=== PATIENT | male | born 1960 | race Caucasian/White ===

== ENCOUNTER → 2016-11-18 | Outpatient (CLI) | payer OTHER ==
--- NOTE | 2016-11-18 16:24 | US ---
EXAMINATION TYPE: US abdomen complete DATE OF EXAM: 11/18/2016 9:22 AM COMPARISON: NONE CLINICAL HISTORY: 56-year-old male R74.8 ELEVATED LIVER ENZYMES. TECHNIQUE: Multiple sonographic images of the abdomen are obtained. FINDINGS: DELIVERY TABLE FEEDER NOTES: Large abdomen, technically difficult study. Liver Length: 19.7 cm Gallbladder Wall: 2.6 mm CBD: 0.5 cm Spleen: 13.3 cm Right Kidney: 12.7 x 5.1 x 5.5 cm Left Kidney: 11.8 x 5.3 x 5.4 cm Pancreas: Only a small portion of the pancreatic body is seen. Remainder suboptimally visualized sec ondary to shadowing from bowel gas. Liver: Enlarged, echogenic, and markedly attenuating. This secondarily limits assessment for focal le isaiah. Gallbladder: Solitary 1 cm calculus and trace sludge. No abnormal gallbladder distention, wall thicke cheri, or pericholecystic fluid. CBD: not well seen due to body habitus and overlying bowel gas Spleen: Upper limits of normal. Right Kidney: Somewhat prominent without hydronephrosis. Left Kidney: No hydronephrosis Upper IVC: Not well seen Abd Aorta: Mostly obscured by overlying bowel gas, only small portion of mid visualized and is matheus l caliber. IMPRESSION: 1. Hepatomegaly and marked hepatic steatosis. Correlate with LFTs, lipid profile, and patient risk fa ctors. 2. Cholelithiasis without acute cholecystitis. 3. Technically limited examination.
== END | disposition home or self-care (01) ==
LOC: RADUSWWP 08:45
PROVIDERS: ATTEND Family Medicine
DX: R16.0 Hepatomegaly, not elsewhere classified (principal); K76.0 Fatty (change of) liver, not elsewhere classified; K80.20 Calculus of gallbladder without cholecystitis without obstruction
CPT/HCPCS: 76700

== ENCOUNTER → 2017-10-17 | Outpatient (CLI) | payer OTHER ==
--- NOTE | 2017-10-17 11:24 | CT ---
EXAMINATION TYPE: CT abdomen pelvis w con DATE OF EXAM: 10/17/2017 COMPARISON: Complete abdominal ultrasound November 18, 2016 HISTORY: Weight loss-30 pounds in [address] DLP: 1693 mGycm, Automated Exposure Control for Dose Reduction was Utilized. CONTRAST: CT scan of the abdomen and pelvis is performed with oral and with IV Contrast, patient injected with 100 mL of Isovue 300. FINDINGS: LUNG BASES: There is 7 mm lobulated groundglass nodule right middle lobe axial image 4. LIVER/GB: Dependent gallstone is seen in gallbladder axial image 27. No surrounding inflammatory quinn ges noted. Liver is diffusely low dense relative to spleen consistent with fatty infiltration as conf irmed on prior ultrasound. Liver is not suspiciously enlarged. PANCREAS: No significant abnormality is seen. SPLEEN: No significant abnormality is seen. ADRENALS: No significant abnormality is seen. KIDNEYS: No significant abnormality is seen. BOWEL: The oral contrast reaches level of the proximal sigmoid colon. There is no suspicious small or large bowel dilatation. There is normal contrast filled appendix from the cecum. There is mild to mo derate wall thickening in the sigmoid colon. A colitis at this level cannot be excluded but would fav or product of poor distention, correlate clinically PROSTATE/SEMINAL VESICLES: Prostate gland is heterogeneous and upper limits of normal in size. LYMPH NODES: No greater than 1cm abdominal or pelvic lymph nodes are appreciated. OSSEOUS STRUCTURES: There are bilateral pars defects L5 level . There is grade 1 anterolisthesis of L 5 on S1 measured 8 mm on sagittal images. There is moderate to advanced disc space narrowing with end plate sclerosis and vacuum disc phenomenon at this level. There is moderate multilevel anterior and l ateral spurring in the mid to lower thoracic spine. OTHER: There is mild calcified plaque of aorta extending into branch vessels. IMPRESSION: 1. Fatty infiltration of liver redemonstrated. 2. Gallstone without CT evidence for acute cholecystitis. 3. A 7 mm right basilar groundglass nodule, advise follow-up contrast-enhanced chest CT to assess for additional nodules. 4. Mild to moderate wall thickening fairly diffusely in sigmoid colon likely product of under distent ion, colitis should be excluded clinically. 5. Bilateral pars defects L5 level with spondylolisthesis and degenerative change lumbosacral junctio n. 6. No obvious mass or adenopathy identified in the abdomen or pelvis to suggest neoplasm.
== END | disposition home or self-care (01) ==
LOC: RADCTMAIN 07:56
PROVIDERS: ATTEND Family Medicine
DX: K80.20 Calculus of gallbladder without cholecystitis without obstruction (principal); K76.0 Fatty (change of) liver, not elsewhere classified; K63.89 Other specified diseases of intestine; R63.4 Abnormal weight loss
CPT/HCPCS: 74177; Q9967

== ENCOUNTER → 2017-11-02 | Outpatient (CLI) | payer OTHER ==
[2017-11-02 09:36] LABS: Blood Urea Nitrogen 16 mg/dL (9-20)
== END | disposition home or self-care (01) ==
LOC: LABWHC1 08:39
PROVIDERS: ATTEND Nurse Practitioner Family
DX: R91.1 Solitary pulmonary nodule (principal)
CPT/HCPCS: 36415; 82565; 84520

== ENCOUNTER → 2017-11-07 | Outpatient (CLI) | payer OTHER ==
--- NOTE | 2017-11-07 08:35 | CT ---
EXAMINATION TYPE: CT chest wo/w con DATE OF EXAM: 11/07/2017 COMPARISON: Correlation CT abdomen and pelvis 10/17/2017 HISTORY: 57-year-old male Wt loss, pulmonary nodule TECHNIQUE: Contiguous axial scanning of the chest before and after the administration of 100 mL of Is ovue 300. Coronal/sagittal reconstructions performed. CT DLP: 909.4mGycm. Automatic exposure control utilized for a dose reduction. FINDINGS: Heart is normal size without pericardial effusion. Coronary vessel calcifications are present in sophia rkable for coronary artery disease. The aorta is normal-caliber with bovine configuration to the aortic arch. A small 8 mm left lower pole thyroid nodule is noted. Scattered small mediastinal lymph nodes and mil d bilateral gynecomastia. No thoracic lymphadenopathy by CT size criteria. Tiny hiatal hernia. Evaluation of the lungs redemonstrates the pulmonary nodule based in the right middle lobe. It measur es 1 cm as measured on the current exam, series 8 image 38. No consolidation or pleural effusion. Bones: Endplate spondylosis mid to lower thoracic spine. No osseous destructive process. IMPRESSION: 1. A 1 cm basilar right middle lobe pulmonary nodule. 3 month follow-up exam recommended to reassess. Findings may be benign but early neoplasm is not excluded at this time. 2. Small 8 mm nodule lower pole left thyroid gland. Thyroid ultrasound can be considered. 3. Tiny hiatal hernia.
== END ==
LOC: RADCTMAIN 06:48
PROVIDERS: ATTEND Family Medicine
DX: R91.1 Solitary pulmonary nodule (principal)
CPT/HCPCS: 71270; Q9967

== ENCOUNTER → 2017-11-21 | Outpatient (CLI) | payer OTHER ==
--- NOTE | 2017-11-21 08:53 | US ---
EXAMINATION TYPE: US thyroid st tissue head/neck DATE OF EXAM: 11/21/2017 COMPARISON: CT CLINICAL HISTORY: E04.1 Thyroid Nodule. Thyroid nodule seen on CT GLAND SIZE: Right Lobe: 4.8 x 2.1 x 1.8 cm Overall Parenchyma: heterogenous Left Lobe: 4.6 x 1.5 x 1.9 cm Overall Parenchyma: heterogeneous Isthmus Thickness: 0.3 cm NODULES RIGHT: # of nodules measured on right: 1 1. 0.7 X 0.6 x 0.7 cm hypoechoic mixed nodule at the mid pole with well-defined margins; This nodu le is wider than tall and shows no intranodular vascularity. Prior size: No prior LEFT: # of nodules measured on left: 1 1. 0.8 X 0.8 x 0.9 cm hypoechoic mixed nodule at the lower pole with well-defined margins; This nod ule is wider than tall and shows no intranodular vascularity. Prior size: 0.8 cm as seen on CT Bilateral neck scanned, no evidence of lymphadenopathy. Dominant nodule on each lobe measured, other multiple sub-centimeter (<0.5cm) nodules visualized bilaterally IMPRESSION: 1. Nonspecific thyroid nodularity. Appropriate follow-up advised.
== END | disposition home or self-care (01) ==
LOC: RADUSWWP 06:58
PROVIDERS: ATTEND Family Medicine
DX: E04.1 Nontoxic single thyroid nodule (principal)
CPT/HCPCS: 76536

== ENCOUNTER → 2018-03-09 | Outpatient (CLI) | payer OTHER ==
--- NOTE | 2018-03-09 08:21 | CT ---
EXAMINATION TYPE: CT chest wo/w con DATE OF EXAM: 03/09/2018 COMPARISON: Chest CT November 07, [address] abdomen October 17, 2017 HISTORY: Pulmonary nodule CT DLP: 624 mGycm. Automated Exposure Control for Dose Reduction was Utilized. TECHNIQUE: CT scan of the thorax is performed following without and with IV Contrast, patient inject ed with 100 mL of Isovue 300. FINDINGS: LUNGS: There is redemonstration of right middle lobe nodule is more solid in appearance on current st y axial image 37 series 4 measuring 8 x 6 mm. No definitive enhancement is present. No new nodules or masses are identified. Dependent atelectasis is seen in both lower lobes. No pleural effusion or p neumothorax is present bilaterally. Tracheobronchial tree is patent. MEDIASTINUM: There are no greater than 1 cm hilar or mediastinal lymph nodes. No cardiomegaly or p ericardial effusion is seen. Coronary artery calcification is present which is noted marker for alejandra nary artery disease. There is stable heterogeneous thyroid with subcentimeter nodularity felt present . OTHER: S-shaped scoliosis is present. There is mild to moderate multilevel spurring in the thoracic s pine. Small degree of bilateral gynecomastia is redemonstrated. IMPRESSION: Overall stable findings, persistent 8 x 6 mm right middle lobe nodule. No new nodules or adenopathy is evident. Advise or Consider repeat CT in one year time to document stability based on F ekaterina sided recommendations based on low risk or high risk patient. Correlate clinically.
== END | disposition home or self-care (01) ==
LOC: RADCTMAIN 07:33
PROVIDERS: ATTEND Family Medicine
DX: R91.1 Solitary pulmonary nodule (principal)
CPT/HCPCS: 71270; Q9967

== ENCOUNTER → 2019-06-20 | Outpatient (CLI) | payer OTHER ==
[2019-06-20 17:17] LABS: African American GFR (CKD) >90 (>60 ml/min/1.73 sqM); Blood Urea Nitrogen 15 mg/dL (9-20); Non-African American GFR(CKD) >90 (>60 ml/min/1.73 sqM)
--- NOTE | 2019-06-21 07:01 | CT ---
EXAMINATION TYPE: CT chest w con DATE OF EXAM: 06/20/2019 COMPARISON: Prior chest CT studies March 09, 2018 and November 07, 2017 HISTORY: Pulmonary lesion, LT side of chest, 1 yr f/u CT DLP: 392.30 mGycm. Automated Exposure Control for Dose Reduction was Utilized. TECHNIQUE: CT scan of the thorax is performed following with IV Contrast, patient injected with 100 mL of Isovue 300. FINDINGS: LUNGS: Stable size right middle lobe nodule or nodular consolidation measuring 8 x 5 mm axial image 3 8. Dependent atelectasis bilateral lower lobes redemonstrated. No new greater than 4 mm pulmonary nod ules or masses. No pleural effusion or thorax. Tracheobronchial tree is patent. MEDIASTINUM: There are no greater than 1 cm hilar or mediastinal lymph nodes. No pericardial effusi on is seen. Heart size upper limits of normal with moderate three-vessel coronary artery calcificati on which is noted marked for underlying coronary artery disease. OTHER: Persistent subareolar bilateral gynecomastia. [id number] multilevel spurring of the spin e. Dependent small gallstones in gallbladder axial image 62 IMPRESSION: Stable 8 x 5 mm right middle lobe nodule or nodular consolidation strongly favoring benig n postinflammatory etiology. No new nodules or masses.
== END | disposition home or self-care (01) ==
LOC: RADCTMAIN 16:22
PROVIDERS: ATTEND Family Medicine
DX: R91.1 Solitary pulmonary nodule (principal); E11.9 Type 2 diabetes mellitus without complications
CPT/HCPCS: 82565; 84520; 71260; 36415; Q9967

== ENCOUNTER 2020-01-27 05:42 | Day surgery (SDC) | payer OTHER ==
[2020-01-27] MEDS ORDERED: ASPIRIN 325 MG TAB PO STA (05:55)
[2020-01-27] MEDS ORDERED: ALPRAZolam 0.5 MG TAB PO PRN (05:55)
[2020-01-27] MEDS ORDERED: SODIUM CHLORIDE 0.9% 1,000 ML in EMPTY BAG 1 BAG IV ONE (05:55)
[2020-01-27] MEDS ORDERED: ALPRAZolam 0.25 MG TAB PO PRN (05:55)
[2020-01-27] MEDS ORDERED: ATORVASTATIN 80 MG TAB PO STA (05:55)
[2020-01-27] MEDS ORDERED: NITROGLYCERIN SL TABS 0.4 MG TAB SUBLINGUAL PRN ×2 (05:55→09:06)
[2020-01-27] MEDS ORDERED: SODIUM CHLORIDE 0.9% 1,000 ML IV ONE (06:05)
[2020-01-27 06:25] LABS: Glucose,Whole Blood 117 mg/dL (75-99)
[2020-01-27 06:26] LABS: Basophils % (A) 1 %; Eosinophils # (A) 0.2 k/uL (0-0.7); Eosinophils % (A) 3 %; HCT 44.9 % (39.0-53.0); HGB 14.9 gm/dL (13.0-17.5); Lymphocytes # (A) 1.5 k/uL (1.0-4.8); Lymphocytes % (A) 25 %; MCH 31.8 pg (25.0-35.0); MCHC 33.3 g/dL (31.0-37.0); MCV 95.4 fL (80.0-100.0); Monocytes # (A) 0.3 k/uL (0-1.0); Monocytes % (A) 5 %; Neutrophils # (A) 3.9 k/uL (1.3-7.7); Neutrophils % (A) 65 %; Platelet Count 204 k/uL (150-450); RDW 12.4 % (11.5-15.5); WBC 5.9 k/uL (3.8-10.6)
[2020-01-27 06:35] LABS: African American GFR (CKD) >90 (>60 ml/min/1.73 sqM); Anion Gap 3 mmol/L; Blood Urea Nitrogen 9 mg/dL (9-20); Carbon Dioxide 27 mmol/L (22-30); Chloride 108 mmol/L (98-107); Glucose 112 mg/dL (74-99); Non-African American GFR(CKD) >90 (>60 ml/min/1.73 sqM); Potassium 4.1 mmol/L (3.5-5.1); Sodium 138 mmol/L (137-145)
[2020-01-27] MEDS ORDERED: fentaNYL (PF) 50 MCG/ML 2 ML AMP IV ONE (07:30)
[2020-01-27] MEDS ORDERED: LIDOCAINE 1% INJ 10MG/ML (20 ML MDV) SQ ONE (07:32)
[2020-01-27] MEDS ORDERED: VERAPAMIL SYRINGE (5 MG/10 ML) INTRAARTER ONE ×2 (07:33→08:49)
[2020-01-27] MEDS ORDERED: MIDAZOLAM 2 MG/2 ML VIAL IV ONE (07:43)
[2020-01-27] MEDS ORDERED: HEPARIN SODIUM 1,000 UN/ML (10ML VL) IV ONE (07:49)
[2020-01-27] MEDS ORDERED: CLOPIDOGREL 75 MG TAB PO ONE (07:51)
[2020-01-27] MEDS ORDERED: IOPAMIDOL-370 100ML BTL INJ ONE ×4 (08:03→08:49)
[2020-01-27] MEDS ORDERED: MAG HYDROX/AL HYDROX/SIMETH 30 ML CUP PO PRN (09:06)
[2020-01-27] MEDS ORDERED: ZOLPIDEM 5 MG TAB PO PRN (09:06)
[2020-01-27] MEDS ORDERED: ATROPINE SULFATE 0.1 MG/ML 10ML SYRINGE IV PRN (09:06)
[2020-01-27] MEDS ORDERED: RX INFO: IV CONTRAST WAS GIVEN 1 EACH MISC MISCELLANE PRN (09:06)
[2020-01-27] MEDS ORDERED: SODIUM CHLORIDE 0.9% 1,000 ML IV SCH (09:15)
--- NOTE | 2020-01-27 09:25 | CC ---
CARDIAC CATHETERIZATION REPORT Mr. Jose is a 59-year-old male with known history of hyperlipidemia, history of coronary artery disease as well as diabetes, who had a abnormal stress echocardiogram with anterior wall ischemia. In view of that, recommendation made regarding cardiac catheterization. The procedures, risks, and complication were discussed with the patient who is in full understanding and agreement. PROCEDURE: Patient was brought to laboratory equipment installer in a fasting semi-sedated state after receiving fentanyl and Benadryl and achieving moderate conscious sedated state. Using Xylocaine anesthesia and Seldinger technique, a 6-Lebanese sheath was introduced in the right radial artery. Selective right and left coronary angiography performed using 5-Lebanese 3.5 bend right and left Juan catheter, multiple views of the coronary artery including hemiaxial views were obtained. Following that, catheters were removed, images were reviewed. FINDINGS: FLUOROSCOPY: There was calcification involving the left anterior descending artery. LEFT MAIN: This is a large-sized vessel, bifurcating into left circumflex, left anterior descending artery. Left main coronary artery has no evidence of high-grade stenosis. LEFT ANTERIOR DESCENDING ARTERY: This is a large-sized vessel, reaching toward the apex, giving rise to 2 diagonal branches. The first diagonal branch is a 50% stenosis. After the diagonal branch, there is a long area of severe disease with subtotally occluded distally with slow flow in the distal LAD and diagonal branch at the bifurcation. The proximal LAD has a 20% plaque. LEFT CIRCUMFLEX: This is a nondominant vessel, giving rise to a large obtuse marginal branch. The left circumflex obtuse marginal branch has 10% to 20% stenosis without any evidence of high-grade stenosis. RIGHT CORONARY ARTERY: This is a dominant vessel, large in caliber, bifurcating distally into PDA and posterolateral segment and branches. The right coronary artery proximally has 20% to 30% plaque. There is collateral from the right coronary artery toward the LAD. LEFT VENTRICULOGRAM: Left ventriculogram not performed. HEMODYNAMICS: There was no gradient across the aortic valve. The left ventricular end- diastolic pressure was not calculated. CONCLUSION: 1. Totally occluded long segment of the LAD involving the diagonal branch. 2. Mild to moderate disease in the right coronary artery and the left circumflex. RECOMMENDATION: In view of finding anatomy, I recommend to proceed with attempt to angioplasty and stenting of the LAD. The procedures, risks, and complication were discussed with the patient who is in full understanding and agreement. MMODL / IJN: [id number] /
--- NOTE | 2020-01-27 09:39 | PTCA ---
PERCUTANEOUSTRANS CORORONARY ANGIOGRAPHY Mr. Jose is a 59-year-old male with known history of diabetes, history of hyperlipidemia, chronic tobacco use, who had an abnormal stress echocardiogram with large anterior wall ischemia, underwent cardiac catheterization, was found to have a totally occluded LAD. Recommendation beginning angioplasty and stenting. The procedures, risks, and complication were discussed with the patient, who is in full understanding and agreement. PROCEDURE: A 6-Peruvian EBU 3.75 guiding catheter introduced into the system after cannulating the left main, a 0.014 balanced medium weight J-wire was advanced across the lesion, was able to cross the occlusion and positioned in the diagonal branch. Subsequently, using is a FineCross microcatheter with the Whisper J-wire, multiple attempts to advanced into the main LAD were unsuccessful. The wire was subintimal. That wire was exchanged to the BMW J-wire. In spite of multiple attempts, there was inability to re-cross the total occlusion of the LAD. At that point, the guiding catheter, the balloon and the guidewire were removed. The sheath was removed, hemostasis was obtained with deployment of a TR band. There was no immediate complication. Patient is returned to his room in stable condition. Of note, the patient had no chest discomfort or EKG changes. Next, he received a total of 8000 units of intravenous heparin. His ACT was monitored. He received intra-arterial verapamil and oral loading dose of clopidogrel. RESULTS: Unsuccessful recanalization of totally occluded LAD. RECOMMENDATION: Patient will be continued on the present medical therapy. He will be evaluated at a later time to undergo repeat procedure for chronic total occlusion of the LAD. Those findings and recommendations were discussed with the patient. He is full understanding and agreement. DURATION OF PROCEDURE: 80 minutes. MMRADHAL / PAN: [id number] /
[2020-01-27 18:16] VITALS: BMI 28.8
[2020-01-27] MEDS ORDERED: METOPROLOL TARTRATE 25 MG TAB PO SCH (21:00)
[2020-01-28 03:38] VITALS: TEMP 98.1
[2020-01-28 06:40] LABS: African American GFR (CKD) >90 (>60 ml/min/1.73 sqM); Anion Gap 5 mmol/L; Blood Urea Nitrogen 8 mg/dL (9-20); Carbon Dioxide 27 mmol/L (22-30); Chloride 106 mmol/L (98-107); Glucose 113 mg/dL (74-99); Non-African American GFR(CKD) >90 (>60 ml/min/1.73 sqM); Potassium 4.3 mmol/L (3.5-5.1); Sodium 138 mmol/L (137-145)
--- NOTE | 2020-01-28 07:41 | PN ---
PROGRESS NOTE Mr. Jose is a 59-year-old male with known history of hyperlipidemia, history of hypertension who had an abnormal stress echocardiogram underwent cardiac catheterization was found to have a chronically occluded mid LAD at the bifurcation of the diagonal branch. Attempts to recanalize the LAD were unsuccessful. He is feeling well this morning. He is denying any chest pain. His breathing has been stable. He denies any dizziness or palpitation. He denies any nausea. He continues to be on aspirin once a day, Plavix 75 mg daily, Lipitor 80 mg daily, metoprolol tartrate 25 mg twice a day. PHYSICAL EXAMINATION: Blood pressure 130/70 with the heart rate in the 60s. LUNGS: Clear. HEART: Regular rate and rhythm. S1, S2. No S3. No rub. ABDOMEN: Soft, nontender. EXTREMITIES: No edema. Right radial pulse intact. LAB DATA: Lab data revealed BUN and creatinine of 8 and 0.71, potassium 4.3. EKG showed no acute changes. IMPRESSION: 1. Chronically occluded left anterior descending artery with inability to recanalize the vessel. 2. Hyperlipidemia. 3. Hypertension. RECOMMENDATION: Patient will be discharged home today and will be evaluated for the possibility to undergo repeat angioplasty and stenting at a tertiary care facility. I have discussed those findings with the patient. MMODL / IJN: [id number] /
[2020-01-28 09:00] VITALS: BP 128/80; PULSE 54; RESP 16
[2020-01-28] MEDS ORDERED: CLOPIDOGREL 75 MG TAB PO SCH (09:00)
[2020-01-28] MEDS ORDERED: ASPIRIN 81 MG PO SCH (09:00)
[2020-01-28] MEDS ORDERED: ATORVASTATIN 80 MG TAB PO SCH (21:00)
[2020-02-02] MEDS ORDERED: ERGOCALCIFEROL 50,000 UNIT CAP PO SCH (09:00)
== END 2020-01-28 10:44 | disposition home or self-care (01) ==
LOC: CATHCVL 05:42 → 3NCARDOBS 08:50 → CATHCVL 01-28 10:44
PROVIDERS: ATTEND Internal Medicine Interventional Cardiology
DX: I25.10 Atherosclerotic heart disease of native coronary artery without angina pectoris (principal); I25.82 Chronic total occlusion of coronary artery; I10 Essential (primary) hypertension; E11.9 Type 2 diabetes mellitus without complications; E78.5 Hyperlipidemia, unspecified; E78.00 Pure hypercholesterolemia, unspecified; Z79.82 Long term (current) use of aspirin; Z79.02 Long term (current) use of antithrombotics/antiplatelets; Z79.899 Other long term (current) drug therapy
CPT/HCPCS: 93458; 92920; 85347; 80048 ×2; 85025; C1769 ×4; C1887 ×2; C1894; J2250; J2001; J3010; J1644; Q9967

== ENCOUNTER 2020-01-29 00:21 | Emergency (ER) | payer OTHER ==
[2020-01-29 00:29] VITALS: TEMP 98.9
[2020-01-29 00:45] LABS: Basophils % (A) 1 %; Eosinophils # (A) 0.1 k/uL (0-0.7); Eosinophils % (A) 1 %; HCT 46.8 % (39.0-53.0); HGB 15.5 gm/dL (13.0-17.5); Lymphocytes # (A) 1.1 k/uL (1.0-4.8); Lymphocytes % (A) 17 %; MCH 31.7 pg (25.0-35.0); MCHC 33.1 g/dL (31.0-37.0); MCV 95.8 fL (80.0-100.0); Mean Platelet Volume 7.9; Monocytes # (A) 0.3 k/uL (0-1.0); Monocytes % (A) 5 %; Neutrophils # (A) 4.9 k/uL (1.3-7.7); Neutrophils % (A) 75 %; Platelet Count 183 k/uL (150-450); RBC 4.89 m/uL (4.30-5.90); RDW 12.5 % (11.5-15.5); WBC 6.5 k/uL (3.8-10.6)
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
[2020-01-29 00:59] LABS: Partial Thromboplastin Time 21.3 sec (22.0-30.0); Prothrombin Time 10.2 sec (9.0-12.0)
[2020-01-29 01:02] LABS: ALT 25 U/L (4-49); AST 29 U/L (17-59); African American GFR (CKD) >90 (>60 ml/min/1.73 sqM); Albumin 4.7 g/dL (3.5-5.0); Alkaline Phosphatase 52 U/L (38-126); Anion Gap 11 mmol/L; Blood Urea Nitrogen 8 mg/dL (9-20); Calcium 9.8 mg/dL (8.4-10.2); Carbon Dioxide 21 mmol/L (22-30); Chloride 109 mmol/L (98-107); Glucose 143 mg/dL (74-99); Non-African American GFR(CKD) >90 (>60 ml/min/1.73 sqM); Sodium 141 mmol/L (137-145); Total Bilirubin 0.4 mg/dL (0.2-1.3); Total Protein 7.3 g/dL (6.3-8.2)
--- NOTE | 2020-01-29 01:06 | CT ---
EXAM: CT Head Without Intravenous Contrast CLINICAL HISTORY: ITS.REASON CT Reason: trauma TECHNIQUE: Axial computed tomography images of the head/brain without intravenous contrast. CTDI is 45.2 mGy and DLP is 1061 mGy-cm. This CT exam was performed using one or more of the following dose reduction techniques: automated exposure control, adjustment of the mA and/or kV according to patient size, and/or use of iterative reconstruction technique. COMPARISON: No relevant prior studies available. FINDINGS: Brain: Unremarkable. No hemorrhage. No significant white matter disease. No edema. Ventricles: Unremarkable. No ventriculomegaly. Bones/joints: Chronic left lamina papyracea fracture. No skull fracture. Soft tissues: Left anterior frontal scalp hematoma. Sinuses: Trace mucosal thickening in the left maxillary sinus. Paranasal sinuses are otherwise clear. No sinus fluid levels. Mastoid air cells: Unremarkable as visualized. No mastoid effusion. IMPRESSION: 1. No acute intracranial process. 2. Left anterior frontal scalp hematoma. No skull fracture. EXAM: CT Cervical Spine Without Intravenous Contrast CLINICAL HISTORY: ITS.REASON CT Reason: trauma TECHNIQUE: Axial computed tomography images of the cervical spine without intravenous contrast. CTDI is 6.3 mGy and DLP is 210.4 mGy-cm. This CT exam was performed using one or more of the following dose reduction techniques: automated exposure control, adjustment of the mA and/or kV according to patient size, and/or use of iterative reconstruction technique. COMPARISON: No relevant prior studies available. FINDINGS: Vertebrae: Straightening of the cervical spine with preservation of vertebral body height and alignment. No acute fracture or subluxation. Discs/spinal canal/neural foramina: Multilevel degenerative disc disease, moderate at C5-C6, C6-C7, C7-T1, and in the visualized upper thoracic spine. Uncovertebral joint degeneration in the lower cervical spine. Mild bilateral facet arthropathy. 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 There is moderate right and mild left foraminal narrowing at C5-C6. Foramina are otherwise patent. Soft tissues: No prevertebral soft tissue swelling. IMPRESSION: No acute osseous findings.
[2020-01-29 01:10] LABS: Alcohol 189 mg/dL
[2020-01-29 01:22] LABS: Appearance,Urine Clear (Clear); Bilirubin,Urine Negative (Negative); Blood,Urine Negative (Negative); Color,Urine Colorless; Glucose,Urine (UA) Negative (Negative); Ketones,Urine Negative (Negative); Leukocyte Esterase,Urine Negative (Negative); Nitrite,Urine Negative (Negative); Protein,Urine Negative (Negative); Specific Gravity,Urine 1.002 (1.001-1.035); Urobilinogen,Urine <2.0 mg/dL (<2.0)
[2020-01-29 01:31] LABS: Amphetamine Screen,Urine Not Detected (NotDetected); Barbiturate Screen,Urine Not Detected (NotDetected); Benzodiazepines Screen,Urine Not Detected (NotDetected); Cocaine Screen,Urine Not Detected (NotDetected); Methadone Screen, Urine Not Detected (NotDetected); Opiate Screen,Urine Not Detected (NotDetected); Oxycodone Screen, Urine Not Detected (NotDetected); Phencyclidine Screen,Urine Not Detected (NotDetected); Tricyclic Antidepressant,Urine Not Detected (NotDetected); Urn Cannabinoid Scrn Detected (NotDetected)
[2020-01-29] MEDS ORDERED: LIDOCAINE 1% INJ 10MG/ML (20 ML MDV) SQ ONE (01:45)
[2020-01-29 02:24] VITALS: BP 107/66; PULSE 60; RESP 16
== END 2020-01-29 02:30 | disposition home or self-care (01) ==
LOC: EC 00:21
DX: S01.01XA Laceration without foreign body of scalp, initial encounter (principal); F17.200 Nicotine dependence, unspecified, uncomplicated; E11.9 Type 2 diabetes mellitus without complications; Z79.899 Other long term (current) drug therapy; Y04.0XXA Assault by unarmed brawl or fight, initial encounter
CPT/HCPCS: 99284 ×2; 12011 ×2; 36415; 93005; 86900; 86901; 80053; 83605; 84484; 85025; 85610; 85730; 86850; 81003; 80306; 72125; 70450; G0480; J2001; 80320

== ENCOUNTER → 2020-03-18 | Outpatient (CLI) | payer OTHER ==
[2020-03-18 12:19] LABS: HCT 43.4 % (39.0-53.0); HGB 14.3 gm/dL (13.0-17.5); MCHC 32.9 g/dL (31.0-37.0); MCV 97.1 fL (80.0-100.0); Mean Platelet Volume 7.7; Platelet Count 214 k/uL (150-450); RBC 4.47 m/uL (4.30-5.90); RDW 12.2 % (11.5-15.5); WBC 4.3 k/uL (3.8-10.6)
[2020-03-18 13:01] LABS: INR 0.9 (<1.2); Prothrombin Time 9.7 sec (9.0-12.0)
[2020-03-18 19:21] LABS: African American GFR (CKD) 114.1 (60.0-200.0); Anion Gap 7.9 mmol/L (4.00-12.00); Calcium 9.2 mg/dL (8.7-10.3); Carbon Dioxide 23.1 mmol/L (21.6-31.8); Magnesium 1.8 mg/dL (1.5-2.4); Non-African American GFR(CKD) 98.5 (60.0-200.0)
== END | disposition home or self-care (01) ==
LOC: LABWHC1 10:50
DX: Z01.818 Encounter for other preprocedural examination (principal); I25.82 Chronic total occlusion of coronary artery
CPT/HCPCS: 80048; 83735; 85027; 85610; 36415; U0003; C9803

== ENCOUNTER → 2020-03-31 | Outpatient (CLI) | payer OTHER ==
[2020-03-31 21:29] LABS: Chol/HDL Ratio 3.15; LDL Cholesterol,Calculated 80.2 mg/dL (0.0-131.0); VLDL Calculation 20.8 mg/dL (5.00-40.00)
== END | disposition home or self-care (01) ==
LOC: LABWHC1 11:00
PROVIDERS: ATTEND Internal Medicine Interventional Cardiology
DX: E78.2 Mixed hyperlipidemia (principal)
CPT/HCPCS: 36415; 80061; 84450; 84460

== ENCOUNTER → 2020-05-29 | Outpatient (CLI) | payer OTHER ==
[2020-05-29 08:44] LABS: Basophils % (A) 1 %; Eosinophils # (A) 0.2 k/uL (0-0.7); Eosinophils % (A) 6 %; HCT 44.5 % (39.0-53.0); HGB 15.3 gm/dL (13.0-17.5); Lymphocytes % (A) 25 %; MCH 33.4 pg (25.0-35.0); MCHC 34.3 g/dL (31.0-37.0); MCV 97.3 fL (80.0-100.0); Mean Platelet Volume 7.9; Monocytes # (A) 0.3 k/uL (0-1.0); Monocytes % (A) 6 %; Neutrophils # (A) 2.3 k/uL (1.3-7.7); Neutrophils % (A) 59 %; Platelet Count 180 k/uL (150-450); RBC 4.57 m/uL (4.30-5.90); RDW 11.8 % (11.5-15.5); WBC 3.9 k/uL (3.8-10.6)
[2020-05-29 09:07] LABS: ALT 32 U/L (4-49); AST 57 U/L (17-59); African American GFR (CKD) >90 (>60 ml/min/1.73 sqM); Albumin 4.9 g/dL (3.5-5.0); Alkaline Phosphatase 41 U/L (38-126); Anion Gap 4 mmol/L; Blood Urea Nitrogen 14 mg/dL (9-20); Calcium 9.7 mg/dL (8.4-10.2); Carbon Dioxide 28 mmol/L (22-30); Chloride 108 mmol/L (98-107); Cholesterol 133 mg/dL (<200); Creatine Kinase 242 U/L (55-170); Glucose 104 mg/dL (74-99); HDL Cholesterol 53 mg/dL (40-60); LDL Cholesterol,Calculated 56 mg/dL (0-99); Non-African American GFR(CKD) >90 (>60 ml/min/1.73 sqM); Sodium 140 mmol/L (137-145); Total Bilirubin 1.3 mg/dL (0.2-1.3); Total Protein 8.1 g/dL (6.3-8.2); Triglycerides 120 mg/dL (<150)
[2020-05-29 09:11] LABS: Potassium 5.3 mmol/L (3.5-5.1)
--- NOTE | 2020-05-29 17:18 | CT ---
EXAMINATION TYPE: CT chest w con DATE OF EXAM: 05/29/2020 COMPARISON: 06/20/2019 HISTORY: lung nodule CT DLP: 449.3 mGycm, Automated exposure control for dose reduction was used. CONTRAST: Performed injected with 100 mL of Isovue 300. TECHNIQUE: Axial images were obtained at 5 mm thick sections. Reconstructed images are reviewed on [employer] computer in the coronal plane. FINDINGS: Portion of the thyroid visualized is normal. Right middle lobe nodule, series 4 image 40, currently measures 0.6 x 0.9 cm. This is slightly larger than the 0.5 x 0.8 cm previous. No enlarged mediastinal or hilar adenopathy is evident. The ascending aorta diameter at the level o f the main pulmonary artery is 3.0 cm. The main pulmonary artery diameter at the bifurcation is 3.6 cm. Dense coronary artery calcification is present. Limited CT sections are obtained through the upper abdomen. Abdomen is essentially unremarkable. IMPRESSIONS: 1. Measurements of right middle lobe nodule are minimally larger than prior, this could be within regina surement error. Short-term follow-up in 6 months or further evaluation with PET/CT could be performed .
== END | disposition home or self-care (01) ==
LOC: RADCTMAIN 07:35
PROVIDERS: ATTEND Family Medicine
DX: R91.1 Solitary pulmonary nodule (principal); E11.9 Type 2 diabetes mellitus without complications
CPT/HCPCS: 82552; 84439; 84154; 84153; 80061; 80053; 82550; 84443; 85025; 71260; 36415; Q9967

== ENCOUNTER 2020-10-19 16:20 | Emergency (ER) | payer OTHER ==
[2020-10-19 17:10] VITALS: BP 112/56; PULSE 70; RESP 20; TEMP 98.2
--- NOTE | 2020-10-19 17:38 | XR ---
EXAMINATION TYPE: XR hand complete LT DATE OF EXAM: 10/19/2020 COMPARISON: NONE HISTORY: Hand pain and swelling TECHNIQUE: 3 views FINDINGS: Metacarpals are intact there is minor spurring at the first carpometacarpal joint. There is some soft tissue swelling at the distal index finger. There is slight cortical irregularity at the tuft of the distal phalanx. IMPRESSION: Soft tissue swelling at the lateral aspect of the distal phalanx of the index finger left hand. There is possible hairline fracture of the tuft of the distal phalanx of the index finger.
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
== END 2020-10-19 18:00 | disposition home or self-care (01) ==
LOC: EC 16:20
DX: S60.222A Contusion of left hand, initial encounter (principal); E11.9 Type 2 diabetes mellitus without complications; E78.5 Hyperlipidemia, unspecified; M19.90 Unspecified osteoarthritis, unspecified site; F17.200 Nicotine dependence, unspecified, uncomplicated; F12.90 Cannabis use, unspecified, uncomplicated; V19.9XXA Pedal cyclist (driver) (passenger) injured in unspecified traffic accident, initial encounter; Y92.410 Unspecified street and highway as the place of occurrence of the external cause
CPT/HCPCS: 99283

== ENCOUNTER 2020-11-14 10:56 | Emergency (ER) | payer OTHER ==
[2020-11-14 11:07] VITALS: BP 135/74; PULSE 53; RESP 18; TEMP 97.9
[2020-11-14] MEDS ORDERED: BACITRACIN OINT 1 EACH PACKET TOPICAL ONE ×2 (11:16→11:23)
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
--- NOTE | 2020-11-14 11:53 | XR ---
EXAMINATION TYPE: XR wrist complete LT DATE OF EXAM: 11/14/2020 CLINICAL HISTORY: Fall injury with pain. TECHNIQUE: Frontal, lateral and oblique images of the left wrist are obtained. 4 view scaphoid view is performed. COMPARISON: Left hand x-ray October 19, 2020 FINDINGS: There is no acute fracture/dislocation evident in the left wrist. Mild to moderate narrowi ng and spurring base of first metacarpal is redemonstrated. The overlying soft tissue appears unrema rkable. IMPRESSION: There is no acute fracture or dislocation in the left wrist.
--- NOTE | 2020-11-14 11:54 | XR ---
EXAMINATION TYPE: XR ribs RT w pa chest xray DATE OF EXAM: 11/14/2020 CLINICAL HISTORY: Right-sided pain after fall injury. TECHNIQUE: Single frontal view of the chest is obtained. A frontal and oblique images right-sided rib s. COMPARISON: Chest CT May 29, 2020 FINDINGS: There is no new Suspicious focal air space opacity, pleural effusion, or pneumothorax seen . The cardiac silhouette size remains within normal limits. The osseous structures are intact. Dedicated images right-sided ribs show no acute displaced fracture. Overlying soft tissue is unremark able. IMPRESSION: 1. No acute cardiopulmonary process. 2. No acute displaced right-sided rib fracture is seen.
== END 2020-11-14 12:20 | disposition home or self-care (01) ==
LOC: EC 10:56
DX: S63.502A Unspecified sprain of left wrist, initial encounter (principal); S20.211A Contusion of right front wall of thorax, initial encounter; S50.311A Abrasion of right elbow, initial encounter; S80.212A Abrasion, left knee, initial encounter; S80.211A Abrasion, right knee, initial encounter; F17.210 Nicotine dependence, cigarettes, uncomplicated; E78.5 Hyperlipidemia, unspecified; E11.9 Type 2 diabetes mellitus without complications; M19.90 Unspecified osteoarthritis, unspecified site; Z79.02 Long term (current) use of antithrombotics/antiplatelets; Z79.82 Long term (current) use of aspirin; V18.9XXA Unspecified pedal cyclist injured in noncollision transport accident in traffic accident, initial encounter; Y93.55 Activity, bike riding
CPT/HCPCS: 99283

== ENCOUNTER → 2021-03-16 | Outpatient (CLI) | payer OTHER ==
[2021-03-16 20:02] LABS: Chol/HDL Ratio 4.06; LDL Cholesterol,Calculated 73.8 mg/dL (0.0-131.0); VLDL Calculation 27.2 mg/dL (5.00-40.00)
== END | disposition home or self-care (01) ==
LOC: LABWHC1 10:18
PROVIDERS: ATTEND Nurse Practitioner Adult Health
DX: E78.2 Mixed hyperlipidemia (principal)
CPT/HCPCS: 36415; 80061; 84450; 84460

== ENCOUNTER → 2021-03-22 | Outpatient (CLI) | payer OTHER ==
[2021-03-22 11:09] LABS: HCT 40.9 % (39.0-53.0); HGB 14.4 gm/dL (13.0-17.5); MCH 31.4 pg (25.0-35.0); MCHC 35.3 g/dL (31.0-37.0); Mean Platelet Volume 8.1; Platelet Count 188 k/uL (150-450); RBC 4.59 m/uL (4.30-5.90); RDW 12.7 % (11.5-15.5); WBC 4.4 k/uL (3.8-10.6)
[2021-03-22 11:23] LABS: African American GFR (CKD) >90 (>60 ml/min/1.73 sqM); Anion Gap 10 mmol/L; Blood Urea Nitrogen 11 mg/dL (9-20); Carbon Dioxide 23 mmol/L (22-30); Chloride 105 mmol/L (98-107); Non-African American GFR(CKD) >90 (>60 ml/min/1.73 sqM); Potassium 4.1 mmol/L (3.5-5.1); Sodium 138 mmol/L (137-145)
== END | disposition home or self-care (01) ==
LOC: LABPAT 10:10
PROVIDERS: ATTEND Internal Medicine Interventional Cardiology
DX: Z01.812 Encounter for preprocedural laboratory examination (principal)
CPT/HCPCS: 80051; 82565; 84520; 85027

== ENCOUNTER 2021-04-06 06:21 | Day surgery (SDC) | payer OTHER ==
[2021-04-02 14:39] VITALS: BMI 33.7
[~2021-04-06 06:21] MED LIST: ALPRAZolam 0.25 MG TAB PO PRN; ALPRAZolam 0.5 MG TAB PO PRN; NITROGLYCERIN SL TABS 0.4 MG TAB SUBLINGUAL PRN; SODIUM CHLORIDE 0.9% 1,000 ML in EMPTY BAG 1 BAG IV SCH
[2021-04-06] MEDS ORDERED: SODIUM CHLORIDE 0.9% 1,000 ML IV ONE (06:51)
[2021-04-06] MEDS ORDERED: ATORVASTATIN 80 MG TAB PO ONE (07:00)
[2021-04-06] MEDS ORDERED: ASPIRIN 325 MG TAB PO ONE (07:00)
[2021-04-06] MEDS ORDERED: ASPIRIN 81 MG ONE (07:05)
[2021-04-06] MEDS ORDERED: ASPIRIN 81 MG PO ONE (07:06)
[2021-04-06 07:09] VITALS: TEMP 98.6
[2021-04-06 07:09] LABS: Glucose,Whole Blood 161 mg/dL (75-99)
[2021-04-06] MEDS ORDERED: LIDOCAINE 1% INJ 10MG/ML (20 ML MDV) ONE (07:25)
[2021-04-06] MEDS ORDERED: fentaNYL (PF) 50 MCG/ML 2 ML AMP ONE (07:25)
[2021-04-06] MEDS ORDERED: VERAPAMIL 2.5 MG/ML 2 ML AMP ONE (07:25)
[2021-04-06] MEDS ORDERED: fentaNYL (PF) 50 MCG/ML 2 ML AMP IV ONE (07:48)
[2021-04-06] MEDS ORDERED: HEPARIN SODIUM 1,000 UN/ML (10ML VL) ONE (07:53)
[2021-04-06] MEDS: LIDOCAINE 1% INJ 10MG/ML (20 ML MDV) SQ ONE ×2 (07:53→08:09)
[2021-04-06] MEDS ORDERED: IOPAMIDOL-370 50ML BTL INJ ONE (08:23)
[2021-04-06] MEDS ORDERED: IOPAMIDOL-370 125ML BTL INJ ONE (08:23)
[2021-04-06] MEDS ORDERED: RX INFO: IV CONTRAST WAS GIVEN 1 EACH MISC MISCELLANE PRN (08:34)
[2021-04-06] MEDS ORDERED: SODIUM CHLORIDE 0.9% 1,000 ML IV SCH (08:45)
[2021-04-06] MEDS ORDERED: CLOPIDOGREL 75 MG TAB PO SCH (09:00)
[2021-04-06] MEDS ORDERED: METOPROLOL TARTRATE 25 MG TAB PO SCH (09:00)
[2021-04-06] MEDS ORDERED: ATORVASTATIN 80 MG TAB PO SCH (09:00)
[2021-04-06] MEDS ORDERED: NON FORMULARY DRUG (Aspirin [Adult Low Dose Aspirin Ec] 81 MG Tablet.Dr) PO SCH (09:00)
[2021-04-06 10:24] VITALS: RESP 16
--- NOTE | 2021-04-06 11:42 | CC ---
CARDIAC CATHETERIZATION REPORT Mr. Jose is a 60-year-old male with known history of diabetes, history of hyperlipidemia and history of coronary artery disease, status post complex stenting of the LAD in February 2020. He recently underwent myocardial perfusion imaging that revealed evidence of anterior wall ischemia. In view of that, recommendation was made regarding cardiac catheterization. The procedure as well as its risks and complications were discussed with the patient, who was in full understanding and agreement. PROCEDURE DESCRIPTION: Patient was brought to the label printing machinist in a fasting, semi-sedated state after receiving fentanyl and Benadryl. He was draped and prepped in conventional fashion. Using xylocaine anesthesia, attempts to advance a wire in the right radial artery were unsuccessful. Subsequently, using Xylocaine anesthesia and Seldinger technique, a 6- Moldovan sheath was introduced in the right femoral artery. Selective right and left coronary angiography was performed using 6-Moldovan, 4 bend right and left Judkin's catheters. Multiple views were taken of the arteries, including hemiaxial views. Following that, a 6-Moldovan tight pigtail catheter was introduced into the left ventricle and a 30-degree OSEI view of the left ventricle was obtained. Following that, catheter and sheath were removed. Hemostasis was obtained with deployment of an Angio- Seal. There was no immediate complication. Patient was returned to his room in stable condition. FINDINGS: LEFT MAIN: This is a large-sized vessel bifurcating into left circumflex and left anterior descending coronary artery. Left main coronary artery has a 10% to 20% plaque proximally. LEFT ANTERIOR DESCENDING ARTERY: This is a large-sized vessel reaching toward the apex with a wrap around the apex segment giving rise to 2 diagonal branches. The proximal LAD has a 20% plaque. The stented segment in the proximal LAD is patent. At the takeoff of the diagonal branch there is 20% plaque. The flow into the second diagonal branch is slow with diffuse intimal in-stent restenosis up to 99%. LEFT CIRCUMFLEX: This is a nondominant vessel, large in caliber, giving rise to a large obtuse marginal branch. The left circumflex as well as its branches have no evidence of obstructive coronary artery disease. RIGHT CORONARY ARTERY: This is a large dominant vessel bifurcating into PDA and posterolateral segment and branches. The right coronary artery has mild intimal disease throughout its course up to 20%. COLLATERALS: There is a septal collateral from the PDA to the septal branch. LEFT VENTRICULOGRAM: Left ventriculogram was performed in 30-degree OSEI view and revealed normal left ventricular size and systolic function, ejection fraction 55%. There was no significant mitral regurgitation. HEMODYNAMICS: There was no gradient across the aortic valve. The left ventricular end- diastolic pressure was 16 to 20 mmHg. CONCLUSION: 1. Patent stent to the LAD with significant in-stent restenosis in the second diagonal branch. 2. Mild disease in the right coronary artery. 3. Preserved left ventricular size and systolic function. RECOMMENDATIONS: In view of findings and anatomy, I have recommended continued medical therapy with the aggressive coronary risk modifications that have been initiated. The abnormality on the stress test most likely represented diagonal branch territory. Based on this finding, I would recommend maximizing his medical therapy. Those findings and recommendations were discussed with the patient, and he is in full understanding and agreement. Duration of sedation was 31 minutes. LISSETTE / BABITA: [id number] / MTDD
[2021-04-06 12:39] VITALS: BP 127/82; PULSE 55
== END 2021-04-06 13:23 | disposition home or self-care (01) ==
LOC: CATHCVL 06:21
PROVIDERS: ATTEND Internal Medicine Interventional Cardiology
DX: I25.10 Atherosclerotic heart disease of native coronary artery without angina pectoris (principal); T82.855A Stenosis of coronary artery stent, initial encounter; E78.00 Pure hypercholesterolemia, unspecified; R94.39 Abnormal result of other cardiovascular function study; E78.2 Mixed hyperlipidemia; E11.9 Type 2 diabetes mellitus without complications; Z20.822 Contact with and (suspected) exposure to COVID-19; Z79.02 Long term (current) use of antithrombotics/antiplatelets; Z79.82 Long term (current) use of aspirin; Z79.899 Other long term (current) drug therapy; Z87.891 Personal history of nicotine dependence
CPT/HCPCS: 93458; 87635; C1760; C1894 ×2; C1769; J2001; J3010; Q9967 ×2

== ENCOUNTER → 2021-08-26 | Outpatient (CLI) | payer OTHER ==
[2021-08-26 09:30] LABS: African American GFR (CKD) >90 (>60 ml/min/1.73 sqM); Blood Urea Nitrogen 12 mg/dL (9-20); Non-African American GFR(CKD) >90 (>60 ml/min/1.73 sqM)
--- NOTE | 2021-08-26 10:31 | CT ---
EXAMINATION TYPE: CT chest w con DATE OF EXAM: 08/26/2021 COMPARISON: CT dated 05 October 2021 HISTORY: Lung nodule CT DLP: 530.4 mGycm Automated exposure control for dose reduction was used. TECHNIQUE: CT scan of the chest is performed with IV Contrast, patient injected with 100 mL of Isovue 300. FINDINGS: LUNGS: Stable middle lobe nodule measuring 8.4 mm compared to 9.[address] scan consistent with a benign nodule. The adjacent more lateral 3 mm nodule is also stable since 2018 CT scan. Minimal terell ateral basal dependent densities and peripheral reticulations. Grossly unremarkable lungs otherwise. Patent central airways. No pleural effusion. MEDIASTINUM: No pericardial effusion. Slight right cardiac enlargement, please correlate with echocar diographic results. Dense coronary arterial atherosclerotic calcifications with scattered arterial at herosclerotic calcifications. No pathologically enlarged lymph nodes in the chest. OTHER: Suspected hepatic steatosis. Degenerative changes of the lower thoracic spine and lower cervi bairon spine. No aggressive bone lesion. IMPRESSION: Stable 2 right middle lobe nodule since 2018 CT scan consistent with benign nodules. No new suspiciou s lung lesion or definite nodule. Incidental findings as described above.
== END | disposition home or self-care (01) ==
LOC: RADCTMAIN 08:39
PROVIDERS: ATTEND Family Medicine
DX: R91.1 Solitary pulmonary nodule (principal)
CPT/HCPCS: 82565; 84520; 71260; 36415; Q9967

== ENCOUNTER → 2022-03-22 | Outpatient (CLI) | payer OTHER ==
--- NOTE | 2022-03-22 08:25 | US ---
EXAMINATION TYPE: US thyroid st tissue head/neck DATE OF EXAM: 03/22/2022 COMPARISON: NONE CLINICAL HISTORY: E04.1 THYROID NODULE. f/u from 4 years ago GLAND SIZE: Right Lobe: 4.1 x 1.5 x 2.1 cm Overall Parenchyma: homogenous Left Lobe: 4.1 x 1.8 x 1.4 cm Overall Parenchyma: homogeneous Isthmus Thickness: 0.4 cm NODULES RIGHT: # of nodules measured on right: 0 LEFT: # of nodules measured on left: 0 ISTHMUS: # of nodules measured in the isthmus: 0 Bilateral neck scanned, no evidence of lymphadenopathy. IMPRESSION: No discrete abnormality seen.
== END | disposition home or self-care (01) ==
LOC: RADUSWWP 07:00
PROVIDERS: ATTEND Family Medicine
DX: E04.1 Nontoxic single thyroid nodule (principal)
CPT/HCPCS: 76536

== ENCOUNTER → 2024-03-27 | Outpatient (CLI) | payer OTHER ==
--- NOTE | 2024-03-27 16:53 | US ---
EXAMINATION TYPE: US thyroid st tissue head/neck DATE OF EXAM: 03/27/2024 COMPARISON: 03/22/2022 CLINICAL INDICATION: Male, 63 years old with history of E04.1 NONTOXIC SINGLE THYROID NODULE; Not on thyroid meds. TECHNIQUE: Grayscale and color Doppler imaging of the thyroid gland. GLAND SIZE: Right Lobe: 4.2 x 1.8 x 2.1 cm Overall Parenchyma: heterogeneous Left Lobe: 3.7 x 1.6 x 1.1 cm Overall Parenchyma: heterogeneous Isthmus Thickness: 0.3 cm NODULES RIGHT: # of nodules measured on right: 0 LEFT: # of nodules measured on left: 0 Simple appearing right cyst measuring 5 mm. ISTHMUS: # of nodules measured in the isthmus: 0 Bilateral neck scanned, no evidence of lymphadenopathy. IMPRESSION: No thyroid nodules that meet criteria for follow-up or biopsy. [facility], , 03/27/2024 4:50 PM
== END | disposition home or self-care (01) ==
LOC: RADUSWWP 16:08
PROVIDERS: ATTEND Family Medicine
DX: E04.1 Nontoxic single thyroid nodule (principal)
CPT/HCPCS: 76536

== ENCOUNTER → 2024-04-29 | Outpatient (CLI) | payer OTHER ==
--- NOTE | 2024-04-29 17:17 | CTL ---
EXAMINATION TYPE: CT Low Dose Lung DATE OF EXAM: 04/29/2024 4:45 PM COMPARISON: 08/26/2021. And back to 11/07/2017 CLINICAL INDICATION: Male, 63 years old with history of Z12.2 ENCNTR SCREEN FOR MALIGNANT NEOPLASM OF RESP; personal tobacco use, history of tobacco use. TECHNIQUE: Multiple axial non-contrast scans were obtained from approximately the lung apices through the upper abdomen. Coronal and sagittal reformatted images were obtained. Low dose technique was uti lized. MIP were created on a separate workstation and submitted for review. CT DLP: 121.7 mGycm, Automated exposure control for dose reduction was used. CT Contrast: Contrast used: None Oral contrast used: None FINDINGS: Lack of intravenous contrast and low dose technique limits the evaluation of the vascular and soft ti ssue structures. LUNGS: No evidence of pulmonary fibrosis. No evidence of focal consolidation, pneumothorax or pleural effusion. Centrilobular emphysema changes. Nodules: RUL: None. RML: 9 mm nodule series 4 image 26 similar to prior in 2021 and dating back to 2017. Stable 3 mm pulmonary nodule series 3 image 29. RLL: None. ESTELA: None. LLL: None. AIRWAY: Patent and unremarkable. HEART: Size within normal limits.Atherosclerosis of the arterial vasculature. MEDIASTINUM: No gross evidence of adenopathy. VASCULATURE: No aortic aneurysm. MUSCULOSKELETAL: No acute osseous abnormalities SOFT TISSUES/LYMPH NODES: Unremarkable. LOWER NECK: No significant findings. UPPER ABDOMEN: No significant findings. IMPRESSION: 1. No clinically significant pulmonary nodules. 2. Mild emphysema. CT LUNG RAD AND CT CHEST RECOMMENDATION: Lung-Rad 2 Benign Appearance or Behavior: Continue annual sc reening with LDCT in 12 months. S Modifier (other clinically significant findings): None Recommend smoking cessation (if current smoker), or continuation of smoking cessation (if prior smoke r). Annual screening for lung cancer with low-dose computed tomography is recommended in adults ages 55 to 77 years who have a 30 pack-year smoking history and currently smoke or have quit within the pa st 15 years. Screening should be discontinued once a person has not smoked for 15 years or develops a health problem that substantially limits life expectancy or the ability or willingness to have curat sudarshan lung surgery. Lung rads 2021 [email or web address] [facility], , 04/29/2024 5:15 PM
== END | disposition home or self-care (01) ==
LOC: RADCTMAIN 16:07
PROVIDERS: ATTEND Family Medicine
DX: Z12.2 Encounter for screening for malignant neoplasm of respiratory organs (principal); J43.2 Centrilobular emphysema; F17.210 Nicotine dependence, cigarettes, uncomplicated
CPT/HCPCS: 71271

== ENCOUNTER → 2024-06-25 | Outpatient (CLI) | payer OTHER ==
--- NOTE | 2024-06-25 12:45 | MR ---
EXAMINATION TYPE: MR Prostate wo/w con DATE OF EXAM: 06/25/2024 9:08 AM COMPARISON: None. CLINICAL INDICATION: Male, 63 years old with history of R97.20 elevated PSA; Elevated PSA TECHNIQUE: Multi-planar, multi-sequence imaging of the pelvis is performed prior to and following the uncomplicated administration of bolus intravenous gadolinium. IV Contrast: 10.5 mL Gadobutrol Interpretive Criteria: PI-RADS v2.1 SERUM PSA: PSA 05-15-2024 5.17 03-20-2024 5.3 SURGICAL PATHOLOGY: No data available. FINDINGS: Prostatic dimensions: 5.4 x 5.5 x 4.1 cm. Ellipsoid Volume:63.76 (PSA density=0.08 ng/mL/mL) CENTRAL GLAND (Central and Transition Zones/CZ+TZ): Multiple bilateral, heterogenous appearing hypertrophic stromal nodules, without suspicious lesion. M edian lobe hypertrophy with protrusion into the base of the bladder. (PI-RADS 2) PERIPHERAL ZONE (PZ): Bilateral linear, indistinct wedgelike areas of low ADC, and low T2 signal, No evidence of masslike a bnormality, or localized perfusional hypervascularity, to further suggest a focus of clinically signi ficant prostate cancer. (PI-RADS 2) SEMINAL VESICLES (SV): Symmetric and unremarkable. PERIPROSTATIC TISSUES: Unremarkable. LYMPH NODES: No enlarged pelvic lymph node. REMAINING PELVIS: Bladder wall is within normal limits given distention. No abnormal free or organized intrapelvic fluid collection. No pathologic bowel dilation or mural thickening. No hernia visualized OSSEOUS STRUCTURES: No suspicious osseous abnormality. IMPRESSION: 1. No specific features for high-risk prostate cancer. Maximum PI-RADS score: 2. 2. Moderate BPH, estimated gland volume 63.76 mL. 3. No suspicious osseous lesion. No lymphadenopathy. No evidence of prostate adenocarcinoma involving the periprostatic tissues. [facility], , 06/25/2024 12:43 PM
== END | disposition home or self-care (01) ==
LOC: RADMRIMAIN 07:55
PROVIDERS: ATTEND Urology
DX: N40.0 Benign prostatic hyperplasia without lower urinary tract symptoms (principal); R97.20 Elevated prostate specific antigen [PSA]
CPT/HCPCS: 72197; A9585